=== PATIENT | female | born 1960 | race Caucasian/White ===

== ENCOUNTER 2018-01-28 16:17 | Emergency (ER) | payer OTHER ==
[~2018-01-28] VITALS: Ht 162.6 cm; Wt 71.7 kg
[2018-01-28] MEDS ORDERED: HYDR1TAB94 (17:11)
[2018-01-28] MEDS ORDERED: IBUP600 (17:12)
== END 2018-01-28 17:32 | disposition home or self-care (01) ==
LOC: ER 16:17
DX: S52.125D Nondisplaced fracture of head of left radius, subsequent encounter for closed fracture with routine healing (principal); F17.200 Nicotine dependence, unspecified, uncomplicated; Z88.2 Allergy status to sulfonamides
CPT/HCPCS: 99282

== ENCOUNTER 2022-02-14 19:18 | Emergency (ER) | payer OTHER ==
[~2022-02-14] VITALS: Ht 162.6 cm; Wt 68.0 kg
[~2022-02-14 19:18] MED LIST: CEPH500 PO; HYDR1TAB94; IBUP600; Pyridium100 MG PO
== END 2022-02-14 22:30 | disposition home or self-care (01) ==
LOC: ER 19:18
DX: S67.193A Crushing injury of left middle finger, initial encounter (principal); S61.213A Laceration without foreign body of left middle finger without damage to nail, initial encounter; Z88.2 Allergy status to sulfonamides; Z87.891 Personal history of nicotine dependence; W23.0XXA Caught, crushed, jammed, or pinched between moving objects, initial encounter
CPT/HCPCS: 12002; 73140; 99283-25